=== PATIENT | female | born 1975 | race Caucasian/White ===

== ENCOUNTER 2016-04-11 16:37 | Emergency (ER) | payer OTHER ==
[~2016-04-11] VITALS: Ht 157.5 cm; Wt 58.3 kg
[~2016-04-11 16:37] MED LIST: IBUP800T25 PO
[2016-04-11 16:40] VITALS: Ht 157.5 cm; Wt 58.3 kg
[2016-04-11] MEDS ORDERED: IBUP-1542 PO (17:36)
--- NOTE | 2016-04-11 19:05 | ERD ---
ER Documentation Chief Complaint Date/Time DATE: 04/11/16 TIME: 19:03 Chief Complaint BACK PAIN X 3 DAYS HPI Patient is a 40-year-old female with no medical problems who presents with upper back pain. She has right upper back pain which started today. It is sharp in nature. It is worse with movement and it is burning. She has had no treatment as of yet. She has no fevers. She has no cough. ROS All systems reviewed and are negative except as per history of present illness. Medications Home Meds Active Scripts Ibuprofen* (Motrin*) 600 Mg Tab, 600 MG PO Q6H Y for PAIN AND OR ELEVATED TEMP, #30 TAB Prov:GLENN SPEARS MD 04/11/16 Ibuprofen* (Motrin*) 800 Mg Tab, 800 MG PO Q8 Y for PAIN AND OR ELEVATED TEMP, # 30 TAB Prov:LIONEL RODNEY. SIGNAL CONSTRUCTOR 12/14/15 Allergies Allergies: Coded Allergies: No Known Allergy (Unverified , 07/10/14) PMhx/Soc Medical and Surgical Hx: pt denies Medical Hx, pt denies Surgical Hx History of Surgery: No Anesthesia Reaction: No Hx Neurological Disorder: No Hx Respiratory Disorders: No Hx Cardiac Disorders: No Hx Psychiatric Problems: No Hx Miscellaneous Medical Probl: No Hx Alcohol Use: No Hx Substance Use: No Hx Tobacco Use: No FmHx Family History: diabetes Physical Exam Vitals Vital Signs Date Time Temp Pulse Resp B/P Pulse Ox O2 Delivery O2 Flow Rate FiO2 04/11/16 16:40 98.1 65 18 125/61 99 Physical Exam Const: No acute distress Head: Atraumatic Eyes: Normal Conjunctiva ENT: Normal External Ears, Nose and Mouth. Neck: Full range of motion..~ No meningismus. Resp: Clear to auscultation bilaterally Cardio: Regular rate and rhythm, no murmurs Abd: Soft, non tender, non distended. Normal bowel sounds Skin: No petechiae or rashes Back: No midline or flank tenderness Ext: Muscular skeletal pain to the muscles of the right upper back consistent with muscular skeletal pain Neur: Awake and alert Psych: Normal Mood and Affect Procedures/MDM Patient is a 40-year-old female presents with right upper back pain. This seems to be very musculoskeletal and at this point I doubt infection or neurovascular issue. I doubt pulmonary embolism and her PERC score is negative. The patient will be discharged home and can follow-up with her primary doctor within 24-48 hours. She will be given ibuprofen for pain and can return for any worsening symptoms. I do not believe she requires further workup or admission to the hospital at this time. Departure Diagnosis: Primary Impression: Back pain Back pain location: thoracic back pain Chronicity: acute Back pain laterality: right Qualified Code: M54.6 - Acute right-sided thoracic back pain Condition: Fair Patient Instructions: Back Pain (Acute Or Chronic) Referrals[facility] Usted se chan hecho un examen mdico de control que le indica que no est en emmy condicin que requiera tratamiento urgente en el Departamento de Emergencia. Un estudio ms profundo y el tratamiento de frias condicin pueden esperar sin ningn riesgo hasta que usted sea atendida/o en el consultorio de frias mdico o emmy cl daly. Es responsabilidad suya arreglar emmy mike para el seguimiento del maryanne. MANEJO DE CONDICIONES NO URGENTES EN EL FUTURO 1) Si usted tiene un mdico de atencin primaria: Usted debera llamar a frias mdico de atencin primaria antes de venir al departamento de emergencia. Despus de las horas de consultorio, frias doctor o frias asociado/a est disponible por telfono. El mdico o enfermero de fani en el servicio telefnico puede asesorarle por marie medio para atender el problema, o maryanne contrario se puede programar emmy mike. 2) Si usted no tiene un mdico de atencin primaria: Llame al mdico o clnica de referencia que aparece abajo miguel las horas de consultorio para hacer emmy mike para que le vean. CLINICAS: [facility] [phone] [address] [facility] 786 [phone] [address] [facility] [phone] [facility] [phone] [facility] [phone] [address] [facility]. [phone] [address] Additional Instructions: Llame al doctor MAANA y yas emmy MIKE PARA DENTRO DE 1-2 LOMBARDI.Dgale a la secretaria que nosotros le instruimos hacer esta mike.Avise o llame si frias condicin se empeora antes de la mike. Regresa aqui si peor o no mejor. GLENN SPEARS MD Apr 11, 2016 19:05
== END 2016-04-11 17:55 | disposition home or self-care (01) ==
LOC: FTE 16:37
DX: M54.6 Pain in thoracic spine (principal)
CPT/HCPCS: 99283

== ENCOUNTER 2016-04-23 13:08 | Emergency (ER) | payer OTHER ==
[~2016-04-23] VITALS: Ht 154.9 cm; Wt 56.0 kg
[~2016-04-23 13:08] MED LIST changes: +IBUP-1542 PO
[2016-04-23 13:11] VITALS: Ht 154.9 cm; Wt 56.0 kg
[2016-04-23] MEDS ORDERED: CARB15DR48 BOTH EARS (14:07)
[2016-04-23] MEDS ORDERED: CETI10CA PO (14:08)
[2016-04-23] MEDS ORDERED: IBUP-1542 PO (14:12)
--- NOTE | 2016-04-23 14:12 | ERD ---
ER Documentation Chief Complaint Date/Time DATE: 04/23/16 TIME: 14:10 Chief Complaint L ear pain x 1 wk HPI This is a 40-year-old female who presents to the emergency department today complaining of left earache for the past week. States that she can't hear out of that ear and it feels clogged and that it is itching. Denies any fevers or chills, sore throat or congestion.. ROS All systems reviewed and are negative except as per history of present illness. Medications Home Meds Active Scripts Ibuprofen* (Motrin*) 600 Mg Tab, 600 MG PO Q6, #30 TAB Prov:YOU PFEIFFER PA-C 04/23/16 Cetirizine Hcl* (Zyrtec*) 10 Mg Capsule, 10 MG PO DAILY, #10 TAB.CHEW Prov:YOU PFEIFFER PA-C 04/23/16 Carbamide Peroxide* (Debrox*) 6.5% - 15 Ml Drops, 10 DROP BOTH EARS BID, #1 BOTTLE Prov:YOU PFEIFFER PA-C 04/23/16 Ibuprofen* (Motrin*) 600 Mg Tab, 600 MG PO Q6H Y for PAIN AND OR ELEVATED TEMP, #30 TAB Prov:GLENN SPEARS MD 04/11/16 Ibuprofen* (Motrin*) 800 Mg Tab, 800 MG PO Q8 Y for PAIN AND OR ELEVATED TEMP, # 30 TAB Prov:LIONEL RODNEY FILING AND POLISHING SUPERVISOR 12/14/15 Allergies Allergies: Coded Allergies: No Known Allergy (Unverified , 07/10/14) PMhx/Soc History of Surgery: No Anesthesia Reaction: No Hx Neurological Disorder: No Hx Respiratory Disorders: No Hx Cardiac Disorders: No Hx Psychiatric Problems: No Hx Miscellaneous Medical Probl: No Hx Alcohol Use: No Hx Substance Use: No Hx Tobacco Use: No Physical Exam Vitals Vital Signs Date Time Temp Pulse Resp B/P Pulse Ox O2 Delivery O2 Flow Rate FiO2 04/23/16 13:11 97.0 71 18 104/59 100 Physical Exam Const: No acute distress Head: Atraumatic Eyes: Normal Conjunctiva ENT: Bilateral ears with cerumen impaction. Nose no drainage. Throat no erythema no exudate Neck: Full range of motion..~ No meningismus. Resp: Clear to auscultation bilaterally Cardio: Regular rate and rhythm, no murmurs Skin: No petechiae or rashes Neur: Awake and alert Psych: Normal Mood and Affect Procedures/MDM This is a 40-year-old female who presents to the emergency department today complaining of decreased hearing in her left ear as well as some itchiness and pain. On physical exam patient's bilateral ears have some cerumen impaction to them I do not feel that any lavage here in the emergency department at this time. . Symptoms at this time consistent with cerumen impaction. Was able to remove some of the cerumen from the left side of the ear and there is no evidence of TM erythema. Patient is afebrile and otherwise well-appearing and low suspicion for otitis media, otitis externa, mastoiditis as there is no purulent drainage or erythema. Given the patient a prescription for Debrox, Zyrtec and Motrin. Patient was instructed to return for any worsening of symptoms or no improvement symptoms or development of fever or chills. At this time the patient is stable for discharge and outpatient management. Patient should follow up with their PCP in the next 1-2 days. They may return to the emergency department sooner for any persistent or worsening of symptoms. Patient understood and agreed with the plan. Departure Diagnosis: Primary Impression: Left ear pain Condition: Fair Patient Instructions: Cerumen Impaction, Home Care Referrals: [facility] Usted se chan hecho un examen mdico de control que le indica que no est en emmy condicin que requiera tratamiento urgente en el Departamento de Emergencia. Un estudio ms profundo y el tratamiento de frias condicin pueden esperar sin ningn riesgo hasta que usted sea atendida/o en el consultorio de frias mdico o emmy cl daly. Es responsabilidad suya arreglar emmy mike para el seguimiento del maryanne. MANEJO DE CONDICIONES NO URGENTES EN EL FUTURO 1) Si usted tiene un mdico de atencin primaria: Usted debera llamar a frias mdico de atencin primaria antes de venir al departamento de emergencia. Despus de las horas de consultorio, frias doctor o frias asociado/a est disponible por telfono. El mdico o enfermero de fani en el servicio telefnico puede asesorarle por marie medio para atender el problema, o maryanne contrario se puede programar emmy mike. 2) Si usted no tiene un mdico de atencin primaria: Llame al mdico o clnica de referencia que aparece abajo miguel las horas de consultorio para hacer emmy mike para que le vean. CLINICAS: [facility] [phone] [address] [facility] [phone] [facility] [phone] [address] [place] [address] [phone] [facility]. [place] [address] [phone] [facility] [phone] [address] Additional Instructions: Llame al doctor MAANA y yas emmy MIKE PARA DENTRO DE 1-2 LOMBARDI.Dgale a la secretaria que nosotros le instruimos hacer esta mike.Avise o llame si frias condicin se empeora antes de la mike. Regresa aqui si peor o no mejor. Use drops as prescribed for earwax [facility] YOU PFEIFFER PA-C Apr 23, 2016 14:12
== END 2016-04-23 14:09 | disposition home or self-care (01) ==
LOC: E/R 13:08
DX: H92.02 Otalgia, left ear (principal)
CPT/HCPCS: 99283

== ENCOUNTER 2016-04-25 13:22 | Emergency (ER) | payer OTHER ==
[~2016-04-25] VITALS: Wt 55.5 kg
[~2016-04-25 13:22] MED LIST changes: +CARB15DR48 BOTH EARS; +CETI10CA PO
[2016-04-25] MEDS ORDERED: NAPR-688 PO (14:32)
--- NOTE | 2016-04-25 14:41 | ERD ---
ER Documentation Chief Complaint Date/Time DATE: 04/25/16 TIME: 14:39 Chief Complaint BILATERAL EAR PAIN X 5 DAYS HPI 40-year-old female presents with bilateral ear pain for 5 days is started with the left ear. She also has decreased hearing. She denies fever chills. She feels like there is something in the ear canals. She uses Q-tips to try to get it out. He has had no discharge. ROS All systems reviewed and are negative except as per history of present illness. Medications Home Meds Active Scripts Naproxen* (Naproxen*) 500 Mg Tablet, 500 MG PO BID Y for PAIN, #14 TAB Prov:VERO HANDY 04/25/16 Ibuprofen* (Motrin*) 600 Mg Tab, 600 MG PO Q6, #30 TAB Prov:YOU PFEIFFER PA-C 04/23/16 Cetirizine Hcl* (Zyrtec*) 10 Mg Capsule, 10 MG PO DAILY, #10 TAB.CHEW Prov:YOU PFEIFFER PA-C 04/23/16 Carbamide Peroxide* (Debrox*) 6.5% - 15 Ml Drops, 10 DROP BOTH EARS BID, #1 BOTTLE Prov:YOU PFEIFFER PA-C 04/23/16 Ibuprofen* (Motrin*) 600 Mg Tab, 600 MG PO Q6H Y for PAIN AND OR ELEVATED TEMP, #30 TAB Prov:GLENN SPEARS MD 04/11/16 Ibuprofen* (Motrin*) 800 Mg Tab, 800 MG PO Q8 Y for PAIN AND OR ELEVATED TEMP, # 30 TAB Prov:LIONEL RODNEY NP 12/14/15 Allergies Allergies: Coded Allergies: No Known Allergy (Unverified , 07/10/14) PMhx/Soc History of Surgery: No Anesthesia Reaction: No Hx Neurological Disorder: No Hx Respiratory Disorders: No Hx Cardiac Disorders: No Hx Psychiatric Problems: No Hx Miscellaneous Medical Probl: No Hx Alcohol Use: No Hx Substance Use: No Hx Tobacco Use: No Physical Exam Vitals Vital Signs Date Time Temp Pulse Resp B/P Pulse Ox O2 Delivery O2 Flow Rate FiO2 04/25/16 13:26 97.5 63 16 117/93 99 Physical Exam Const: [] No distress Head: Atraumatic Eyes: Normal Conjunctiva ENT: Normal External Ears, Nose and Mouth. Bilateral external ear canals impacted with cerumen. Neck: Full range of motion..~ No adenopathy. Procedures/MDM Bilateral cerumen impaction. I attempted to remove some of the cerumen with ear curettes which was successful. I do not want to take any deeper there is potentially scratching rupturing the tympanic membrane. We will have removed enough for the patient with the eardrops (she has Debrox eardrops at home) along with water flushing should remove the cerumen. I am giving her primary care follow-up in 2-3 days in case she still has symptoms. I provided her with a 10 cc syringe and told to use gentle pressure to help remove the cerumen with conjunction with Debrox eardrops. Instructed not to push too hard. No signs of infection. Departure Diagnosis: Primary Impression: Bilateral impacted cerumen Condition: Stable Patient Instructions: Cerumen Impaction, Home Care Referrals: COUNTS INCLUDE 234 BEDS AT THE [facility] YOU HAVE RECEIVED A MEDICAL SCREENING EXAM AND THE RESULTS INDICATE THAT YOU DO NOT HAVE A CONDITION THAT REQUIRES URGENT TREATMENT IN THE EMERGENCY DEPARTMENT. FURTHER EVALUATION AND TREATMENT OF YOUR CONDITION CAN WAIT UNTIL YOU ARE SEEN IN YOUR DOCTORS OFFICE WITHIN THE NEXT 1-2 DAYS. IT IS YOUR RESPONSIBILITY TO MAKE AN APPOINTMENT FOR FOLOW-UP CARE. IF YOU HAVE A PRIMARY DOCTOR --you should call your primary doctor and schedule an appointment IF YOU DO NOT HAVE A PRIMARY DOCTOR YOU CAN CALL OUR PHYSICIAN REFERRAL HOTLINE AT IF YOU CAN NOT AFFORD TO SEE A PHYSICIAN YOU CAN CHOSE FROM THE FOLLOWING COUNTS INCLUDE 234 BEDS AT THE [facility] [address] [facility] [address] [facility] [place] [facility]. [facility] [address] [facility] [address] [facility]. [facility]. [address] Additional Instructions: Call your primary care doctor TOMORROW for an appointment during the next 1 WEEK.Tell the paralegal legal secretary that you were referred from this facility.See the doctor sooner or return here if your condition worsens before your appointment time. VERO HANDY DO Apr 25, 2016 14:41
== END 2016-04-25 15:01 | disposition home or self-care (01) ==
LOC: FTE 13:22
DX: H61.23 Impacted cerumen, bilateral (principal)
CPT/HCPCS: 69210; Z7502

== ENCOUNTER 2016-06-16 12:55 | Emergency (ER) | END 2016-06-16 15:43 | disposition home or self-care (01) | DX: K62.5 Hemorrhage of anus and rectum (principal) ==

== ENCOUNTER 2016-06-18 14:15 | Emergency (ER) | payer OTHER ==
[~2016-06-18] VITALS: Ht 154.9 cm; Wt 56.7 kg
[~2016-06-18 14:15] MED LIST changes: +DOCU-144 PO; +NAPR-688 PO
[2016-06-18 14:34] VITALS: Ht 154.9 cm; Wt 56.7 kg
[2016-06-18] MEDS ORDERED: IBUP-1542 PO (14:53)
[2016-06-18] MEDS ORDERED: MED4DP PO (14:53)
--- NOTE | 2016-06-18 16:20 | ERD ---
ER Documentation Chief Complaint Date/Time DATE: 06/18/16 TIME: 16:13 Chief Complaint left limph nose swelling? HPI This is a 40 y/o female that presents to the ER with left sided lymph node swelling and pain. Patient states that pain is severe and constant is throbbing in quality patient states that the pain radiates throughout the left side of her neck. She denies any fevers or chills. She denies any cough or cold symptoms. She denies any sore throat. Patient denies any trauma to the neck. She denies any chest pain or shortness of breath. ROS 12 point review of systems was done, all negative except per HPI. Medications Home Meds Active Scripts Methylprednisolone* (Medrol* DOSE PACK) 4 Mg/Dose-Pack Tab.ds.pk, 4 MG PO . DIRECTED for 6 Days, PACKET Prov:PATRICK FLOR 06/18/16 Ibuprofen* (Motrin*) 600 Mg Tab, 600 MG PO Q6, #30 TAB Prov:PATRICK FLOR 06/18/16 Docusate Sodium* (Colace*) 100 Mg Capsule, 100 MG PO BID, #60 CAP Prov:MIMA MICHELLE MD 06/16/16 Naproxen* (Naproxen*) 500 Mg Tablet, 500 MG PO BID Y for PAIN, #14 TAB Prov:VERO HANDY DO 04/25/16 Ibuprofen* (Motrin*) 600 Mg Tab, 600 MG PO Q6, #30 TAB Prov:YOU PFEIFFER PA-C 04/23/16 Cetirizine Hcl* (Zyrtec*) 10 Mg Capsule, 10 MG PO DAILY, #10 TAB.CHEW Prov:YOU PFEIFFER PA-C 04/23/16 Carbamide Peroxide* (Debrox*) 6.5% - 15 Ml Drops, 10 DROP BOTH EARS BID, #1 BOTTLE Prov:YOU PFEIFFER PA-C 04/23/16 Ibuprofen* (Motrin*) 600 Mg Tab, 600 MG PO Q6H Y for PAIN AND OR ELEVATED TEMP, #30 TAB Prov:GLENN SPEARS MD 04/11/16 Ibuprofen* (Motrin*) 800 Mg Tab, 800 MG PO Q8 Y for PAIN AND OR ELEVATED TEMP, # 30 TAB Prov:LIONEL RODNEY EXTRACTOR OPERATOR HELPER 12/14/15 Allergies Allergies: Coded Allergies: No Known Allergy (Unverified , 07/10/14) PMhx/Soc History of Surgery: No Anesthesia Reaction: No Hx Neurological Disorder: No Hx Respiratory Disorders: No Hx Cardiac Disorders: No Hx Psychiatric Problems: No Hx Miscellaneous Medical Probl: No Hx Alcohol Use: No Hx Substance Use: No Hx Tobacco Use: No Physical Exam Vitals Vital Signs Date Time Temp Pulse Resp B/P Pulse Ox O2 Delivery O2 Flow Rate FiO2 06/18/16 14:34 98.1 78 20 139/78 99 Physical Exam GENERAL: The patient is well developed and appropriate for usual state of health , in no apparent distress. HEENT: Atraumatic. Conjunctivae are pink. Pupils equal, round, and reactive to light. Extraocular muscles are grossly intact. Bilateral tympanic membranes are clear with no evidence of erythema, effusion or dulling of the light reflex. The oropharynx is clear with no erythema or exudates. NECK: Patient has 1 tender and swollen lymph node on the left side of her neck. CHEST: Clear to auscultation bilaterally. There are no rales, wheezes or rhonchi. HEART: Regular rate and rhythm. No murmurs, clicks, rubs or gallops. NEURO: Alert and oriented. SKIN: The skin is warm and dry. Procedures/MDM This is a 40-year-old female that presents to the ER with left-sided neck pain. Patient did have one swollen and tender lymph node. Patient will be sent home with ibuprofen and with a steroid pack. There was no evidence of infection. Abscess is low. Suspicion for trauma is low as there is no history of any falls. I advised patient to follow-up with primary care doctor within 1- 3 days or return to ER sooner if symptoms worsen. I explained to patient that should go away within 1 week if not she urgently needs to follow-up with primary care doctor for further testing. My medical decision making shared with the patient she understands and agrees with plan. Departure Diagnosis: Primary Impression: Lymphadenopathy Condition: Stable Patient Instructions: When Your Child Has Swollen Lymph Nodes Additional Instructions: Call your primary care doctor TOMORROW for an appointment during the next 1-2 days.See the doctor sooner or return here if your condition worsens before your appointment time. IF SWELLING OF LYMPH NODES DOES NOT GO AWAY WITHIN 1-2 WEEKS PLEASE GO TO YOUR PRIMARY CARE DOCTOR'S OFFICE FOR FOLLOW UP! PATRICK FLOR Jun 18, 2016 16:20
== END 2016-06-18 14:56 | disposition home or self-care (01) ==
LOC: E/R 14:15
DX: R59.0 Localized enlarged lymph nodes (principal)
CPT/HCPCS: 99283

== ENCOUNTER 2016-07-05 11:46 | Emergency (ER) | payer OTHER ==
[~2016-07-05] VITALS: Ht 152.4 cm; Wt 55.5 kg
[~2016-07-05 11:46] MED LIST changes: +MED4DP PO
[2016-07-05 12:03] VITALS: Ht 152.4 cm; Wt 55.5 kg
[2016-07-05] MEDS ORDERED: ACETAMINOPHEN 500 MG TAB PO STA (13:22)
--- NOTE | 2016-07-05 14:09 | RADRPT ---
PROCEDURE: Right elbow series CLINICAL INDICATION: Pain status post trauma TECHNIQUE: AP, lateral and oblique views COMPARISON: None available FINDINGS: No evidence for elbow effusion is present. No acute fractures or dislocations are present. No radi odense foreign bodies are present. Normal mineralization and preservation of joint spaces are noted . IMPRESSION: 1. No evidence for acute fractures or dislocations. RPTAT: HDC .Rosalina Harrison MD, MD Date Time Electronically viewed and signed by .Rosalina Harrison MD, on 07/05/2016 14:09 .C/
--- NOTE | 2016-07-05 14:19 | ERD ---
ER Documentation Chief Complaint Date/Time DATE: 07/05/16 TIME: 14:16 Chief Complaint Pt with R arm pain X 3 days, reports bucket fell on it. HPI This a 40-year-old female who presents to the emergency department today complaining of right arm pain after doing community service and filling of a large bucket and then the pocket dropping on her arm. She states that she took ibuprofen. Denies any fevers or chills or previous trauma ROS All systems reviewed and are negative except as per history of present illness. Medications Home Meds Active Scripts Acetaminophen* (Tylophen*) 500 Mg Capsule, 1 CAP PO Q6H Y for PAIN AND OR ELEVATED TEMP, #30 CAP Prov:YOU PFEIFFER PA-C 07/05/16 Ibuprofen* (Motrin*) 600 Mg Tab, 600 MG PO Q6, #30 TAB Prov:YOU PFEIFFER PA-C 07/05/16 Methylprednisolone* (Medrol* DOSE PACK) 4 Mg/Dose-Pack Tab.ds.pk, 4 MG PO . DIRECTED for 6 Days, PACKET Prov:PATRICK FLOR 06/18/16 Ibuprofen* (Motrin*) 600 Mg Tab, 600 MG PO Q6, #30 TAB Prov:PATRICK FLOR 06/18/16 Docusate Sodium* (Colace*) 100 Mg Capsule, 100 MG PO BID, #60 CAP Prov:MMIA MICHELLE MD 06/16/16 Naproxen* (Naproxen*) 500 Mg Tablet, 500 MG PO BID Y for PAIN, #14 TAB Prov:VERO HANDY DO 04/25/16 Ibuprofen* (Motrin*) 600 Mg Tab, 600 MG PO Q6, #30 TAB Prov:YOU PFEIFFER PA-C 04/23/16 Cetirizine Hcl* (Zyrtec*) 10 Mg Capsule, 10 MG PO DAILY, #10 TAB.CHEW Prov:YOU PFEIFFER PA-C 04/23/16 Carbamide Peroxide* (Debrox*) 6.5% - 15 Ml Drops, 10 DROP BOTH EARS BID, #1 BOTTLE Prov:YOU PFEIFFER PA-C 04/23/16 Ibuprofen* (Motrin*) 600 Mg Tab, 600 MG PO Q6H Y for PAIN AND OR ELEVATED TEMP, #30 TAB Prov:GLENN SPEARS MD 04/11/16 Ibuprofen* (Motrin*) 800 Mg Tab, 800 MG PO Q8 Y for PAIN AND OR ELEVATED TEMP, # 30 TAB Prov:LIONEL RODNEY NP 12/14/15 Allergies Allergies: Coded Allergies: No Known Allergy (Unverified , 07/10/14) PMhx/Soc Medical and Surgical Hx: pt denies Medical Hx, pt denies Surgical Hx History of Surgery: No Anesthesia Reaction: No Hx Neurological Disorder: No Hx Respiratory Disorders: No Hx Cardiac Disorders: No Hx Psychiatric Problems: No Hx Miscellaneous Medical Probl: No Hx Alcohol Use: No Hx Substance Use: No Hx Tobacco Use: No Smoking Status: Never smoker Physical Exam Vitals Vital Signs Date Time Temp Pulse Resp B/P Pulse Ox O2 Delivery O2 Flow Rate FiO2 07/05/16 12:03 97.9 62 18 110/54 98 Physical Exam Const: talkative, NAD Head: Atraumatic Eyes: Normal Conjunctiva ENT: Normal External Ears, Nose and Mouth. Neck: Full range of motion..~ No meningismus. Resp: Clear to auscultation bilaterally Cardio: Regular rate and rhythm, no murmurs Skin: No petechiae or rashes MSK right arm with no obvious deformity. No effusion. No ecchymosis. Full active range of motion with tenderness to palpation diffusely over elbow. Pulses 2+. Distal neurovascularly intact. Full active range motion at wrist. Neur: Awake and alert Psych: Normal Mood and Affect Results 24 hrs Current Medications Medications (Trade) Dose Ordered Sig/Jaclyn Route PRN Reason Start Time Stop Time Status Last Admin Dose Admin Acetaminophen (Tylenol Tab) 500 mg ONCE STAT PO 07/05/16 13:22 07/05/16 13:24 DC 07/05/16 13:41 DIAGNOSTIC IMAGING REPORT Patient: RONY CRUMP : 1975 Age: 40 Sex: F MR #: [id number] DOS: 07/05/16 0000 Ordering MD: YOU PFEIFFER PA-C Location: E Room/Bed: PROCEDURE: Right elbow series CLINICAL INDICATION: Pain status post trauma TECHNIQUE: AP, lateral and oblique views COMPARISON: None available FINDINGS: No evidence for elbow effusion is present. No acute fractures or dislocations are present. No radiodense foreign bodies are present. Normal mineralization and preservation of joint spaces are noted. IMPRESSION: 1. No evidence for acute fractures or dislocations. RPTAT: HDC .Rosalina Harrison MD, MD Date Time Electronically viewed and signed by .Rosalina Harrison MD, MD on 07/05/2016 14: 09 .C/ CC: YOU PFEIFFER PA-C Procedures/MDM This a 40-year-old female who presents to the emergency department today complaining of right arm pain after dropping a bucket on her arm that was full and heavy. Patient had pain on physical exam and therefore did obtain imaging. Per the radiology report images of the right elbow are unremarkable. There is no evidence for acute fracture dislocation. There is no erythema or warmth. Low suspicion for septic joint or gout. There are no lacerations. Low suspicion for cellulitis or deep space infection. Patient symptoms at this time is consistent with contusion versus sprain versus strain. Patient was given Tylenol here in the emergency department. Patient is a former drug abuser and I do not feel that she would benefit from narcotics at this time especially given her community service requirements currently. Patient given a prescription for Tylenol and Motrin. She was instructed to ice. At this time the patient is stable for discharge and outpatient management. Patient should follow up with their PCP in the next 1-2 days. They may return to the emergency department sooner for any persistent or worsening of symptoms. Patient understood and agreed with the plan. Departure Diagnosis: Primary Impression: Arm injury Encounter type: initial encounter Laterality: right Qualified Code: S49.91XA - Arm injury, right, initial encounter Condition: Fair YOU PFEIFFER PA-C Jul 05, 2016 14:19
[2016-07-05] MEDS ORDERED: IBUP-1542 PO (14:42)
[2016-07-05] MEDS ORDERED: ACET500C5 PO (14:42)
[2016-07-05 18:39] VITALS: BP 117/68; PULSE 88; RESP 18
== END 2016-07-05 18:40 | disposition home or self-care (01) ==
LOC: FTE 11:46
DX: S49.91XA Unspecified injury of right shoulder and upper arm, initial encounter (principal); W20.8XXA Other cause of strike by thrown, projected or falling object, initial encounter; Y92.9 Unspecified place or not applicable
CPT/HCPCS: 73080; Z7502; Z7610

== ENCOUNTER 2016-08-10 16:16 | Emergency (ER) | payer OTHER ==
[~2016-08-10] VITALS: Ht 152.4 cm; Wt 53.0 kg
[~2016-08-10 16:16] MED LIST changes: +ACET500C5 PO
[2016-08-10 16:22] VITALS: Ht 152.4 cm; Wt 53.0 kg
[2016-08-10] MEDS ORDERED: HYDR25SU23 PR (17:16)
[2016-08-10] MEDS ORDERED: DOCU-144 PO (17:17)
[2016-08-10] MEDS ORDERED: POLY17PO6 PO (17:17)
[2016-08-10] MEDS ORDERED: ACET500C5 PO (17:18)
--- NOTE | 2016-08-10 17:23 | ERD ---
ER Documentation Chief Complaint Date/Time DATE: 08/10/16 TIME: 17:19 Chief Complaint "A FEW DROPS OF BRIGHT RED BLOOD FROM RECTUM EARLIER TODAY"- ABD PAIN HPI This is a 40-year-old female who presents the emergency department today complaining of some rectal pain. Patient states that she had a few drops of blood on the toilet paper. Denies any blood in her stool. Denies any abdominal pain. States her last bowel movement was 3 days ago. States she has had this in the past. Denies any fevers or chills, nausea vomiting or diarrhea ROS All systems reviewed and are negative except as per history of present illness. Medications Home Meds Active Scripts Acetaminophen* (Tylophen*) 500 Mg Capsule, 1 CAP PO Q6H Y for PAIN AND OR ELEVATED TEMP, #30 CAP Prov:OYU PFEIFFERC 08/10/16 Docusate Sodium* (Colace*) 100 Mg Capsule, 100 MG PO TID, #30 CAP Prov:YOU PFEIFFERC 08/10/16 Polyethylene Glycol* (Miralax*) 17 Gm Powd.pack, 17 GM PO DAILY, #20 Prov:YOU PFEIFFER-C 08/10/16 Hydrocortisone Acetate (Anusol-Hc) 25 Mg Supp.rect, 1 SUPP CO BID Y for HEMORROID PAIN/ITCHING, #15 SUPP.RECT Prov:YOU PFEIFFERC 08/10/16 Acetaminophen* (Tylophen*) 500 Mg Capsule, 1 CAP PO Q6H Y for PAIN AND OR ELEVATED TEMP, #30 CAP Prov:YOU PFEIFFERC 07/05/16 Ibuprofen* (Motrin*) 600 Mg Tab, 600 MG PO Q6, #30 TAB Prov:YOU PFEIFFER-C 07/05/16 Methylprednisolone* (Medrol* DOSE PACK) 4 Mg/Dose-Pack Tab.ds.pk, 4 MG PO . DIRECTED for 6 Days, PACKET Prov:PATRICK FLOR 06/18/16 Ibuprofen* (Motrin*) 600 Mg Tab, 600 MG PO Q6, #30 TAB Prov:PATRICK FLOR 06/18/16 Docusate Sodium* (Colace*) 100 Mg Capsule, 100 MG PO BID, #60 CAP Prov:MIMA MICHELLE MD 06/16/16 Naproxen* (Naproxen*) 500 Mg Tablet, 500 MG PO BID Y for PAIN, #14 TAB Prov:VERO HANDY 04/25/16 Ibuprofen* (Motrin*) 600 Mg Tab, 600 MG PO Q6, #30 TAB Prov:YOU PFEIFFER-C 04/23/16 Cetirizine Hcl* (Zyrtec*) 10 Mg Capsule, 10 MG PO DAILY, #10 TAB.CHEW Prov:YOU PFEIFFER-C 04/23/16 Carbamide Peroxide* (Debrox*) 6.5% - 15 Ml Drops, 10 DROP BOTH EARS BID, #1 BOTTLE Prov:YOU PFEIFFER-C 04/23/16 Ibuprofen* (Motrin*) 600 Mg Tab, 600 MG PO Q6H Y for PAIN AND OR ELEVATED TEMP, #30 TAB Prov:GLENN SPEARS MD 04/11/16 Ibuprofen* (Motrin*) 800 Mg Tab, 800 MG PO Q8 Y for PAIN AND OR ELEVATED TEMP, # 30 TAB Prov:LIONEL RODNEY NP 12/14/15 Allergies Allergies: Coded Allergies: No Known Allergy (Unverified , 07/10/14) PMhx/Soc History of Surgery: No Anesthesia Reaction: No Hx Neurological Disorder: No Hx Respiratory Disorders: No Hx Cardiac Disorders: No Hx Psychiatric Problems: No Hx Miscellaneous Medical Probl: No Hx Alcohol Use: No Hx Substance Use: No Hx Tobacco Use: No Physical Exam Vitals Vital Signs Date Time Temp Pulse Resp B/P Pulse Ox O2 Delivery O2 Flow Rate FiO2 08/10/16 16:22 98.6 62 18 158/59 99 Physical Exam Const: No acute distress Head: Atraumatic Eyes: Normal Conjunctiva ENT: Normal External Ears, Nose and Mouth. Neck: Full range of motion..~ No meningismus. Resp: Clear to auscultation bilaterally Cardio: Regular rate and rhythm, no murmurs Abd: Soft, non tender, non distended. Normal bowel sounds rectal exam shows no significant external hemorrhoids, erythema or fluctuance. There is no active bleeding, gross blood, melanotic stools or masses. Skin: No petechiae or rashes Neur: Awake and alert Psych: Normal Mood and Affect Procedures/MDM This a 40-year-old female who presents to the emergency department today complaining of some rectal pain and some blood on her toilet paper when she wipes. Patient was seen here on June 16, 2016 with similar symptoms. She has a stable rectal bleeding with no evidence of active bleeding, melanotic stools or abscesses or signs or symptoms of anemia. Patient's rectal bleeding likely from constipation or internal hemorrhoids. Patient denies any abdominal pain on physical exam and I have low suspicion for acute surgical abdomen, significant GI bleed. Patient was given a prescription for Tylenol, Anusol suppositories, Colace and MiraLAX. Patient did not follow-up with her primary care physician upon her last visit and she was instructed to do so for referral to GI specialist. Patient understood At this time the patient is stable for discharge and outpatient management. Patient should follow up with their PCP in the next 1-2 days. They may return to the emergency department sooner for any persistent or worsening of symptoms. Patient understood and agreed with the plan. Departure Diagnosis: Primary Impression: Rectal bleeding Condition: Fair Patient Instructions: Constipation (Adult), Rectal Bleed, Stable Referrals: your PCP Additional Instructions: Llame al doctor MAANA y yas emmy MIKE PARA DENTRO DE 1-2 LOMBARDI.Dgale a la secretaria que nosotros le instruimos hacer esta mike.Avise o llame si frias condicin se empeora antes de la mike. Regresa aqui si peor o no mejor. Take Tylenol for pain Use Anusol for rectal pain Take Colace and MiraLAX for constipation YOU PFEIFFER PA-C August 10, 2016 17:23
== END 2016-08-10 17:33 | disposition home or self-care (01) ==
LOC: FTE 16:16
DX: K62.5 Hemorrhage of anus and rectum (principal)
CPT/HCPCS: 99284

== ENCOUNTER 2016-08-23 16:27 | Emergency (ER) | payer OTHER ==
[~2016-08-23] VITALS: Wt 50.0 kg
[~2016-08-23 16:27] MED LIST changes: +HYDR25SU23 PR; +POLY17PO6 PO
--- NOTE | 2016-08-23 17:46 | RADRPT ---
PROCEDURE: XR Hand. CLINICAL INDICATION: Right hand pain. Injury TECHNIQUE: Three views of the right hand were obtained. COMPARISON: No prior studies are available for comparison. FINDINGS: There is no evidence of acute fracture or dislocation. The joint spaces are maintained. Bony mineralization is normal. Soft tissues are unremarkable. No radiopaque foreign body identified. IMPRESSION: 1. Unremarkable right hand x-ray series. 2. No acute fracture or dislocation is seen. RPTAT: QQ .Chemo Samuels MD, Date Time Electronically viewed and signed by .Chemo Samuels MD, on 08/23/2016 17:46 .M/
[2016-08-23] MEDS ORDERED: ACET500C5 PO (17:59)
[2016-08-23 18:06] VITALS: BP 121/62; PULSE 72; RESP 18
--- NOTE | 2016-08-23 18:13 | ERD ---
ER Documentation Chief Complaint Date/Time DATE: 08/23/16 TIME: 18:06 Chief Complaint R HAND PAIN AND SWELLING FROM CAR DOOR . 3 DAYS AGO . HPI 40-year-old right-handed female with no significant past medical history presents the ED complaining of a right hand injury about 3 days ago. Reports that she sustained a crush injury to her right hand. States that her right middle knuckle is in pain. Describes the pain as a pulsating and throbbing sensation. Rates it a 8 out of 10. States that she has been taking ibuprofen without relief of the pain. Denies any loss of sensation, loss of range of motion, fever, weakness, numbness or tingling, nausea, vomiting. ROS All systems reviewed and are negative except as per history of present illness. Medications Home Meds Active Scripts Acetaminophen* (Tylophen*) 500 Mg Capsule, 1 CAP PO Q6H Y for PAIN AND OR ELEVATED TEMP, #20 CAP Prov:MARGARITA RAMÍREZ PA-C 08/23/16 Acetaminophen* (Tylophen*) 500 Mg Capsule, 1 CAP PO Q6H Y for PAIN AND OR ELEVATED TEMP, #30 CAP Prov:YOU PFEIFFER PA-C 08/10/16 Docusate Sodium* (Colace*) 100 Mg Capsule, 100 MG PO TID, #30 CAP Prov:YOU PFEIFFER PA-C 08/10/16 Polyethylene Glycol* (Miralax*) 17 Gm Powd.pack, 17 GM PO DAILY, #20 Prov:YOU PFEIFFER PA-C 08/10/16 Hydrocortisone Acetate (Anusol-Hc) 25 Mg Supp.rect, 1 SUPP [place] BID Y for HEMORROID PAIN/ITCHING, #15 SUPP.RECT Prov:YOU PFEIFFER PA-C 08/10/16 Acetaminophen* (Tylophen*) 500 Mg Capsule, 1 CAP PO Q6H Y for PAIN AND OR ELEVATED TEMP, #30 CAP Prov:YOU PFEIFFERC 07/05/16 Ibuprofen* (Motrin*) 600 Mg Tab, 600 MG PO Q6, #30 TAB Prov:YOU PFEIFFER PA-C 07/05/16 Methylprednisolone* (Medrol* DOSE PACK) 4 Mg/Dose-Pack Tab.ds.pk, 4 MG PO . DIRECTED for 6 Days, PACKET Prov:PATRICK FLOR 06/18/16 Ibuprofen* (Motrin*) 600 Mg Tab, 600 MG PO Q6, #30 TAB Prov:PATRICK FLOR 06/18/16 Docusate Sodium* (Colace*) 100 Mg Capsule, 100 MG PO BID, #60 CAP Prov:MIMA MICHELLE MD 06/16/16 Naproxen* (Naproxen*) 500 Mg Tablet, 500 MG PO BID Y for PAIN, #14 TAB Prov:VERO HANDY 04/25/16 Ibuprofen* (Motrin*) 600 Mg Tab, 600 MG PO Q6, #30 TAB Prov:YOU PFEIFFER-C 04/23/16 Cetirizine Hcl* (Zyrtec*) 10 Mg Capsule, 10 MG PO DAILY, #10 TAB.CHEW Prov:YOU PFEIFFER-C 04/23/16 Carbamide Peroxide* (Debrox*) 6.5% - 15 Ml Drops, 10 DROP BOTH EARS BID, #1 BOTTLE Prov:YOU PFEIFFER-C 04/23/16 Ibuprofen* (Motrin*) 600 Mg Tab, 600 MG PO Q6H Y for PAIN AND OR ELEVATED TEMP, #30 TAB Prov:GLENN SPEARS MD 04/11/16 Ibuprofen* (Motrin*) 800 Mg Tab, 800 MG PO Q8 Y for PAIN AND OR ELEVATED TEMP, # 30 TAB Prov:LIONEL RODNEY NP 12/14/15 Allergies Allergies: Coded Allergies: No Known Allergy (Unverified , 07/10/14) PMhx/Soc Medical and Surgical Hx: pt denies Medical Hx, pt denies Surgical Hx History of Surgery: No Anesthesia Reaction: No Hx Neurological Disorder: No Hx Respiratory Disorders: No Hx Cardiac Disorders: No Hx Psychiatric Problems: No Hx Miscellaneous Medical Probl: No Hx Alcohol Use: No Hx Substance Use: No Hx Tobacco Use: No Smoking Status: Never smoker Physical Exam Vitals Vital Signs Date Time Temp Pulse Resp B/P Pulse Ox O2 Delivery O2 Flow Rate FiO2 08/23/16 16:32 98.5 63 20 98/54 99 Physical Exam Const: [id number], well-nourished. In no acute distress. Head: Atraumatic, normocephalic Eyes: Normal Conjunctiva without injection ENT: Normal external ear, nose and mouth. Neck: Full range of motion. No meningismus. Resp: Clear to auscultation bilaterally. No wheezing, rhonchi, rales, or crackles. No accessory muscle use. No retractions. Cardio: Regular rate and rhythm, no murmurs Skin: No petechiae or rashes Ext: No cyanosis, or edema. Cap refill less than 2 seconds. Distal pulses intact bilaterally. Right MTP tenderness to palpation. Slightly edematous. No surrounding erythema. No warmth to touch. Full range of motion of the PIP, DIP, MCP joints. Patient was able to make a fist. Extension and flexion was noted. No tenderness palpation of the distal radius or ulna. Patient had full range of motion of flexion and extension of wrists and other joints of bilateral upper and lower extremities. . Neur: Awake and alert. Normal gait and coordination. Muscle strength 5/5. Sensation intact bilaterally. Psych: Normal Mood and Affect Procedures/MDM This is a 40-year-old female patient with no significant past medical history presents the ED complaining of right hand pain after a crush injury from a car door. Patient is afebrile nontoxic appearing. Patient has normal vital signs. A right hand x-ray was ordered to further evaluate patient. PROCEDURE: XR Hand. CLINICAL INDICATION: Right hand pain. Injury TECHNIQUE: Three views of the right hand were obtained. COMPARISON: No prior studies are available for comparison. FINDINGS: There is no evidence of acute fracture or dislocation. The joint spaces are maintained. Bony mineralization is normal. Soft tissues are unremarkable. No radiopaque foreign body identified. IMPRESSION: 1. Unremarkable right hand x-ray series. 2. No acute fracture or dislocation is seen. Patient is neurovascularly intact. Patient's extremity symptoms have stabilized while they have been evaluated in the department and are appropriate for outpatient follow up. No evidence of fractures, dislocations, compartment syndrome, neurologic injury, vascular injury, open joint, open fracture, tendon laceration, septic arthritis, osteomyelitis, DVT, foreign body, or other emergent conditions. Discharge medications: Tylenol Follow up with primary care physician in 1-2 days. Instructed patient to return to the ED sooner for any worsening symptoms. Patient's questions were answered. Patient understood and agreed with discharge plan. Patient discharged stable. Departure Diagnosis: Primary Impression: Injury of hand Encounter type: initial encounter Laterality: right Qualified Code: S69.91XA - Injury of hand, right, initial encounter Condition: Stable Patient Instructions: Crush Injury, Hand/Finger Referrals: [facility] YOU HAVE RECEIVED A MEDICAL SCREENING EXAM AND THE RESULTS INDICATE THAT YOU DO NOT HAVE A CONDITION THAT REQUIRES URGENT TREATMENT IN THE EMERGENCY DEPARTMENT. FURTHER EVALUATION AND TREATMENT OF YOUR CONDITION CAN WAIT UNTIL YOU ARE SEEN IN YOUR DOCTORS OFFICE WITHIN THE NEXT 1-2 DAYS. IT IS YOUR RESPONSIBILITY TO MAKE AN APPOINTMENT FOR FOLOW-UP CARE. IF YOU HAVE A PRIMARY DOCTOR --you should call your primary doctor and schedule an appointment IF YOU DO NOT HAVE A PRIMARY DOCTOR YOU CAN CALL OUR PHYSICIAN REFERRAL HOTLINE AT IF YOU CAN NOT AFFORD TO SEE A PHYSICIAN YOU CAN CHOSE FROM THE FOLLOWING [facility] [address] [facility]. [facility] [address] [email or web address] [address] [facility] [address] [facility] [address] [facility] [address] [facility] [facility] YOU HAVE RECEIVED A MEDICAL SCREENING EXAM AND THE RESULTS INDICATE THAT YOU DO NOT HAVE A CONDITION THAT REQUIRES URGENT TREATMENT IN THE EMERGENCY DEPARTMENT. FURTHER EVALUATION AND TREATMENT OF YOUR CONDITION CAN WAIT UNTIL YOU ARE SEEN IN YOUR DOCTORS OFFICE WITHIN THE NEXT 1-2 DAYS. IT IS YOUR RESPONSIBILITY TO MAKE AN APPOINTMENT FOR FOLOW-UP CARE. IF YOU HAVE A PRIMARY DOCTOR --you should call your primary doctor and schedule and appointment IF YOU DO NOT HAVE A PRIMARY DOCTOR YOU CAN CALL OUR PHYSICIAN REFERRAL HOTLINE AT . IF YOU CAN NOT AFFORD TO SEE A PHYSICIAN YOU CAN CHOSE FROM THE FOLLOWING [facility] INSTITUTIONS: [facility] [address] [place] [address] [facility] [address] [place] [address] [place] [address] [place] [address] [facility] Additional Instructions: Call your primary care doctor TOMORROW for an appointment during the next 2-3 days.See the doctor sooner or return here if your condition worsens before your appointment time. MARGARITA RAMÍREZ PA-C August 23, 2016 18:13 MARGARITA RAMÍREZ PA-C August 23, 2016 18:13
== END 2016-08-23 18:05 | disposition home or self-care (01) ==
LOC: FTE 16:27
DX: S69.91XA Unspecified injury of right wrist, hand and finger(s), initial encounter (principal); W22.8XXA Striking against or struck by other objects, initial encounter; Y92.9 Unspecified place or not applicable
CPT/HCPCS: 73130; Z7502

== ENCOUNTER 2016-09-02 12:03 | Emergency (ER) | payer OTHER ==
[~2016-09-02] VITALS: Ht 157.5 cm; Wt 52.0 kg
[2016-09-02 12:09] VITALS: Ht 157.5 cm; Wt 52.0 kg
[2016-09-02] MEDS ORDERED: IBUPROFEN 200 MG TAB PO STA (12:49)
--- NOTE | 2016-09-02 12:55 | ERD ---
ER Documentation Chief Complaint Date/Time DATE: 09/02/16 TIME: 12:51 Chief Complaint chest pain since am, "i have a lot of stress" HPI 40-year-old female with a history of high cholesterol presents to the emergency department complaining of throbbing, nonradiating left-sided chest pain since 630 this morning. Patient states the pain is 10 out of 10. She states that this has happened many times before. She admits to having a lot of stress and anxiety lately. She denies any shortness of breath, palpitations, drug use, fevers, abdominal pain. Patient denies taking any medications for this. Denies any recent traveling, estrogen use. ROS All systems reviewed and are negative except as per history of present illness. Medications Home Meds Active Scripts Ibuprofen* (Motrin*) 400 Mg Tab, 400 MG PO Q6H Y for PAIN AND OR ELEVATED TEMP, #30 TAB Prov:DEYSI HESS PA-C 09/02/16 Acetaminophen* (Tylophen*) 500 Mg Capsule, 1 CAP PO Q6H Y for PAIN AND OR ELEVATED TEMP, #20 CAP Prov:MARGARITA RAMÍREZ PA-C 08/23/16 Acetaminophen* (Tylophen*) 500 Mg Capsule, 1 CAP PO Q6H Y for PAIN AND OR ELEVATED TEMP, #30 CAP Prov:YOU PFEIFFER PA-C 08/10/16 Docusate Sodium* (Colace*) 100 Mg Capsule, 100 MG PO TID, #30 CAP Prov:YOU PFEIFFER PA-C 08/10/16 Polyethylene Glycol* (Miralax*) 17 Gm Powd.pack, 17 GM PO DAILY, #20 Prov:YOU PFEIFFERC 08/10/16 Hydrocortisone Acetate (Anusol-Hc) 25 Mg Supp.rect, 1 SUPP [place] BID Y for HEMORROID PAIN/ITCHING, #15 SUPP.RECT Prov:YOU PFEIFFER PA-C 08/10/16 Acetaminophen* (Tylophen*) 500 Mg Capsule, 1 CAP PO Q6H Y for PAIN AND OR ELEVATED TEMP, #30 CAP Prov:YOU PFEIFFER PA-C 07/05/16 Ibuprofen* (Motrin*) 600 Mg Tab, 600 MG PO Q6, #30 TAB Prov:YOU PFEIFFERC 07/05/16 Methylprednisolone* (Medrol* DOSE PACK) 4 Mg/Dose-Pack Tab.ds.pk, 4 MG PO . DIRECTED for 6 Days, PACKET Prov:PATRICK FLOR Miguel Angel 06/18/16 Ibuprofen* (Motrin*) 600 Mg Tab, 600 MG PO Q6, #30 TAB Prov:PATRICK FLOR Miguel Angel 06/18/16 Docusate Sodium* (Colace*) 100 Mg Capsule, 100 MG PO BID, #60 CAP Prov:MIMA CORNELL MD 06/16/16 Naproxen* (Naproxen*) 500 Mg Tablet, 500 MG PO BID Y for PAIN, #14 TAB Prov:VERO HANDY DO 04/25/16 Ibuprofen* (Motrin*) 600 Mg Tab, 600 MG PO Q6, #30 TAB Prov:YOU PFEIFFERC 04/23/16 Cetirizine Hcl* (Zyrtec*) 10 Mg Capsule, 10 MG PO DAILY, #10 TAB.CHEW Prov:YOU PFEIFFER PA-C 04/23/16 Carbamide Peroxide* (Debrox*) 6.5% - 15 Ml Drops, 10 DROP BOTH EARS BID, #1 BOTTLE Prov:YOU PFEIFFER PA-C 04/23/16 Ibuprofen* (Motrin*) 600 Mg Tab, 600 MG PO Q6H Y for PAIN AND OR ELEVATED TEMP, #30 TAB Prov:GLENN SPEARS MD 04/11/16 Ibuprofen* (Motrin*) 800 Mg Tab, 800 MG PO Q8 Y for PAIN AND OR ELEVATED TEMP, # 30 TAB Prov:LIONEL RODNEY NP 12/14/15 Allergies Allergies: Coded Allergies: No Known Allergy (Unverified , 07/10/14) PMhx/Soc Medical and Surgical Hx: pt denies Medical Hx, pt denies Surgical Hx History of Surgery: No Anesthesia Reaction: No Hx Neurological Disorder: No Hx Respiratory Disorders: No Hx Cardiac Disorders: No Hx Psychiatric Problems: No Hx Miscellaneous Medical Probl: No Hx Alcohol Use: No Hx Substance Use: No Hx Tobacco Use: No Smoking Status: Never smoker Physical Exam Vitals Physical Exam Const: Well-developed well-nourished no acute distress Head: Atraumatic Eyes: Normal Conjunctiva ENT: Normal External Ears, Nose and Mouth. Neck: Full range of motion..~ No meningismus. Resp: Clear to auscultation bilaterally Cardio: Regular rate and rhythm, no murmurs No JVD, Abd: Soft, non tender, non distended. Normal bowel sounds Skin: No petechiae or rashes Back: No midline or flank tenderness Ext: No cyanosis, or edema Neur: Awake and alert Psych: Normal Mood and Affect Results 24 hrs Laboratory Tests Test 09/02/16 13:00 White Blood Count 7.910^3/ul Red Blood Count 4.3310^6/ul Hemoglobin 12.9g/dl Hematocrit 39.2% Mean Corpuscular Volume 90.5fl Mean Corpuscular Hemoglobin 29.8pg Mean Corpuscular Hemoglobin Concent 32.9g/dl Red Cell Distribution Width 12.4% Platelet Count 57469^3/UL Mean Platelet Volume 8.4fl Neutrophils % 76.9% Lymphocytes % 16.6% Monocytes % 5.4% Eosinophils % 0.5% Basophils % 0.3% Nucleated Red Blood Cells % 0.0/100WBC Neutrophils # 6.110^3/ul Lymphocytes # 1.310^3/ul Monocytes # 0.410^3/ul Eosinophils # 0.010^3/ul Basophils # 0.010^3/ul Nucleated Red Blood Cells # 0.010^3/ul Sodium Level 143mmol/L Potassium Level 4.1mmol/L Chloride Level 106mmol/L Carbon Dioxide Level 27mmol/L Anion Gap 14 Blood Urea Nitrogen 11mg/dl Creatinine 0.55mg/dl Glucose Level 95mg/dl Calcium Level 9.5mg/dl Total Bilirubin 0.2mg/dl Direct Bilirubin 0.00mg/dl Indirect Bilirubin 0.2mg/dl Aspartate Amino Transf (AST/SGOT) 18IU/L Alanine Aminotransferase (ALT/SGPT) 23IU/L Alkaline Phosphatase 73IU/L Troponin I < 0.012ng/ml Total Protein 7.3g/dl Albumin 4.7g/dl Globulin 2.60g/dl Albumin/Globulin Ratio 1.80 Current Medications Medications (Trade) Dose Ordered Sig/Jaclyn Route PRN Reason Start Time Stop Time Status Last Admin Dose Admin Ibuprofen (Motrin) 400 mg ONCE STAT PO 09/02/16 12:49 09/02/16 12:51 DC 09/02/16 12:57 Lorazepam (Ativan) 1 mg ONCE ONCE PO 09/02/16 13:00 09/02/16 13:01 DC 09/02/16 12:57 Procedures/MDM This is a 40-year-old female presenting to the emergency department complaining of a throbbing sharp nonradiating left-sided chest pain since this 6:30 this morning. Patient states that this has happened many times before. Patient appears well, she has stable vital signs. I will low suspicion for ACS, pulmonary embolism, pneumothorax, pleural effusion or unstable angina. In the ED patient was given Ativan and ibuprofen, I have reassessed her and she is doing a lot better, patient likely has anxiety. EKG was done and did not show any evidence of STEMI or dysrhythmia. Lab work was done. Lab work was drawn. CBC did not show any evidence of leukocytosis or anemia. CMP did not show any evidence of renal, liver, or electrolyte abnormalities. Troponin was negative. UA did not show any evidence of hemoglobin or urinary tract infection. Chest x- ray did not show any evidence of infiltrates, pneumothorax or pleural effusion. Patient has a low heart score. 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 She stable for discharge for home with precautions to return to the ER for any worsening signs or symptoms. She understands and agrees with this plan EKG: read and signed off by myself and Dr. Cornell Rate/Rhythm: Normal Sinus Rhythm at 66 bpm QRS, ST, T-waves: No changes consistent w/ acute ischemia Impression: No evidence of ischemia or arrhythmia Chest X-ray 1V Interpreted by me: Soft Tissue: No acute abnormalities Bones: No acute abnormalities Mediastinum/Cardiac Silhouette/Lungs: No acute abnormalities Departure Diagnosis: Primary Impression: Chest pain Condition: Stable DEYSI HESS PA-C Sep 02, 2016 12:55
[2016-09-02] MEDS ORDERED: LORAZEPAM 1 MG TAB PO ONE (13:00)
[2016-09-02 13:16] LABS: ADD SCAN DIFF NO
[2016-09-02 13:19] LABS: BASOPHILS % 0.3 % (0.0-2.0); EOSINOPHILS % 0.5 % (0.0-7.0); HEMATOCRIT 39.2 % (37.0-47.0); HEMOGLOBIN 12.9 g/dl (12.0-16.0); LYMPHOCYTES # 1.3 10^3/ul (0.8-2.9); LYMPHOCYTES % 16.6 % (15.0-51.0); MEAN CORPUSCULAR HEMOGLOBIN 29.8 pg (29.0-33.0); MEAN CORPUSCULAR HGB CONC 32.9 g/dl (32.0-37.0); MEAN CORPUSCULAR VOLUME 90.5 fl (82.0-101.0); MEAN PLATELET VOLUME 8.4 fl (7.4-10.4); MONOCYTE # 0.4 10^3/ul (0.3-0.9); MONOCYTES % 5.4 % (0.0-11.0); NEUTROPHIL # 6.1 10^3/ul (1.6-7.5); NEUTROPHILS % 76.9 % (39.0-77.0); PLATELET COUNT 217 10^3/UL (140-415); RED BLOOD COUNT 4.33 10^6/ul (4.20-5.40); RED CELL DISTRIBUTION WIDTH 12.4 % (11.5-14.5); WHITE BLOOD COUNT 7.9 10^3/ul (4.8-10.8)
--- NOTE | 2016-09-02 13:27 | RADRPT ---
PROCEDURE: XR Chest. CLINICAL INDICATION: chest pain TECHNIQUE: Single frontal view of the chest was obtained COMPARISON: 07/10/2014 FINDINGS: The heart and mediastinum are within normal limits. The lungs are clear. There is no pleural effusion or pneumothorax. RPTAT: AA IMPRESSION: No acute disease. .Cristian Lantigua MD, MD Date Time Electronically viewed and signed by .Cristian Lantigua MD, MD on 09/02/2016 13:26 .S/
[2016-09-02] MEDS ORDERED: IBUP400T22 PO (13:37)
[2016-09-02 13:43] LABS: ALANINE AMINOTRANSFERASE 23 IU/L (13-69); ALBUMIN 4.7 g/dl (3.3-4.9); ALKALINE PHOSPHATASE 73 IU/L (42-121); ANION GAP 14 (8-16); ASPARTATE AMINO TRANSFERASE 18 IU/L (15-46); BILIRUBIN,INDIRECT 0.2 mg/dl (0-1.1); BILIRUBIN,TOTAL 0.2 mg/dl (0.2-1.3); BLOOD UREA NITROGEN 11 mg/dl (7-20); CALCIUM 9.5 mg/dl (8.4-10.2); CARBON DIOXIDE 27 mmol/L (21-31); CHLORIDE 106 mmol/L (97-110); CREATININE 0.55 mg/dl (0.44-1.00); GLUCOSE 95 mg/dl (70-220); POTASSIUM 4.1 mmol/L (3.5-5.1); SODIUM 143 mmol/L (135-144); TOTAL PROTEIN 7.3 g/dl (6.1-8.1)
[2016-09-02 13:54] LABS: TROPONIN-I < 0.012 ng/ml (0.00-0.12)
[2016-09-02 14:22] VITALS: BP 120/62; PULSE 77; RESP 15
== END 2016-09-02 14:23 | disposition home or self-care (01) ==
LOC: FTE 12:03
DX: R07.9 Chest pain, unspecified (principal)
CPT/HCPCS: 71010; 80053; 84484; 85025; 93005; Z7502; Z7610

== ENCOUNTER 2017-01-06 17:22 | Emergency (ER) | payer OTHER ==
[~2017-01-06] VITALS: Ht 160 cm; Wt 67.0 kg
[~2017-01-06 17:22] MED LIST changes: -ACET500C5 PO; +BUPR300T36 PO; -CARB15DR48 BOTH EARS; -CETI10CA PO; -DOCU-144 PO; +FAMO-96 PO; -HYDR25SU23 PR; -IBUP-1542 PO; -IBUP800T25 PO; -MED4DP PO; -NAPR-688 PO; -POLY17PO6 PO
[2017-01-06 17:24] VITALS: Ht 160 cm; Wt 67.0 kg
--- NOTE | 2017-01-06 19:17 | RADRPT ---
PROCEDURE: US Pelvis. CLINICAL INDICATION: Abnormal vaginal bleeding. TECHNIQUE: The pelvis was evaluated with transabdominal and transvaginal sonography in the axial a nd sagittal planes. COMPARISON: No prior study is available for comparison. FINDINGS: Uterus: 7.9 x 4.5 x 6.1 cm. Endometrium: 4.5 mm. Right ovary: 2.9 x 2.3 x 2.3 cm. Left ovary: 2.5 x 1.0 x 1.6 cm. Uterine masses: None. Ovarian masses: None. Color Doppler and pulsed Doppler sonography demonstrate normal flow to the ova leodan. Other pelvic masses: None. Free fluid: None. IMPRESSION: 1. Normal pelvic ultrasound. RPTAT: QQ .Arturo Spears MD, MD Date Time Electronically viewed and signed by .Arturo Spears MD, on 01/06/2017 19:17 .R/
[2017-01-06 19:25] LABS: ADD UMIC YES; UR ASCORBIC ACID 20 mg/dL (NEGATIVE); UR BILIRUBIN (Dip) NEGATIVE (NEGATIVE); UR BLOOD (Dip) 3+ mg/dL (NEGATIVE); UR CLARITY SLIGHTLY CLOUDY (CLEAR); UR COLOR YELLOW (YELLOW); UR GLUCOSE (Dip) NEGATIVE (NEGATIVE); UR KETONES (Dip) NEGATIVE (NEGATIVE); UR LEUKOCYTE ESTERASE (Dip) 1+ Leu/ul (NEGATIVE); UR MUCUS FEW /HPF (NONE SEEN); UR NITRITE (Dip) NEGATIVE (NEGATIVE); UR RBC > 182 /HPF (0-5); UR SPECIFIC GRAVITY (Dip) 1.015 (1.003-1.030); UR SQUAMOUS EPITHELIAL CELL FEW /HPF (FEW); UR TOTAL PROTEIN (Dip) NEGATIVE (NEGATIVE); UR UROBILINOGEN (Dip) NEGATIVE (NEGATIVE)
[2017-01-06 19:31] LABS: BASOPHILS % 0.3 % (0.0-2.0); EOSINOPHILS # 0.1 10^3/ul (0.0-0.5); HEMATOCRIT 38.2 % (37.0-47.0); HEMOGLOBIN 12.7 g/dl (12.0-16.0); LYMPHOCYTES # 2.2 10^3/ul (0.8-2.9); LYMPHOCYTES % 22.3 % (15.0-51.0); MEAN CORPUSCULAR HGB CONC 33.2 g/dl (32.0-37.0); MEAN CORPUSCULAR VOLUME 93.2 fl (82.0-101.0); MONOCYTE # 0.6 10^3/ul (0.3-0.9); PLATELET COUNT 245 10^3/UL (140-415); RED CELL DISTRIBUTION WIDTH 12.8 % (11.5-14.5)
[2017-01-06 19:51] LABS: ALBUMIN 4.2 g/dl (3.3-4.9); ALBUMIN/GLOBULIN RATIO 1.27; BILIRUBIN,INDIRECT 0.1 mg/dl (0-1.1); BILIRUBIN,TOTAL 0.1 mg/dl (0.2-1.3); CALCIUM 9.3 mg/dl (8.4-10.2); CREATININE 0.57 mg/dl (0.44-1.00); TOTAL PROTEIN 7.5 g/dl (6.1-8.1)
[2017-01-06] MEDS ORDERED: CEPH-443 PO (20:18)
--- NOTE | 2017-01-06 20:27 | ERD ---
ER Documentation Chief Complaint Date/Time DATE: 01/06/17 TIME: 20:23 Chief Complaint VAGINAL BLEEDING X 1 MOS HPI This is a 41-year-old female that presents to the ER with vaginal bleeding for the last month. Patient states that she uses about a bag of pads a day. She does admit to some pelvic pain. Pelvic pain is crampy in nature, and non radiating. She has not tried anything for the pain. Patient denies any weakness , or dizziness. Patient denies chest pain or shortness of breath. Patient denies to urinary frequency and dysuria. She denies any other vaginal discharge. She denies any fevers or chills. ROS 12 point review of systems was done, all negative except per HPI. Medications Home Meds Active Scripts Cephalexin* (Keflex*) 500 Mg Capsule, 500 MG PO BID for 7 Days, CAP Prov:PATRICK FLOR 01/06/17 Famotidine* (Pepcid*) 20 Mg Tablet, 20 MG PO BID for 28 Days, #56 TAB Prov:BECKY HATHAWAY MD 11/21/16 Reported Medications Bupropion Hcl* (Bupropion XL*) 300 Mg Tab.sr.24h, 300 MG PO DAILY, TAB.SA 11/21/16 Allergies Allergies: Coded Allergies: No Known Allergy (Unverified , 11/21/16) PMhx/Soc Medical and Surgical Hx: pt denies Medical Hx, pt denies Surgical Hx History of Surgery: No Anesthesia Reaction: No Hx Neurological Disorder: No Hx Respiratory Disorders: No Hx Cardiac Disorders: No Hx Psychiatric Problems: Yes (Depression) Hx Miscellaneous Medical Probl: No Hx Alcohol Use: No Hx Substance Use: No Hx Tobacco Use: Yes Smoking Status: Current every day smoker Physical Exam Vitals Vital Signs Date Time Temp Pulse Resp B/P Pulse Ox O2 Delivery O2 Flow Rate FiO2 01/06/17 17:24 98.2 80 20 135/56 99 Physical Exam GENERAL: The patient is well developed and appropriate for usual state of health , in no apparent distress. HEENT: Atraumatic. CHEST: Clear to auscultation bilaterally. There are no rales, wheezes or rhonchi. HEART: Regular rate and rhythm. No murmurs, clicks, rubs or gallops. ABDOMEN: Soft, nontender and nondistended. Good bowel sounds. No rebound or guarding. No gross peritonitis. No gross organomegaly or masses. No Duckworth sign or McBurney point tenderness. BACK: No midline or flank tenderness. NEURO: Alert and oriented. SKIN: The skin is warm and dry. Result Diagram: 01/06/17191601/06/171916 Results 24 hrs Laboratory Tests Test 01/06/17 19:00 01/06/17 19:17 Urine Color YELLOW Urine Clarity SLIGHTLY CLOUDY Urine pH 6.0 Urine Specific [place] 1.015 Urine Ketones NEGATIVEmg/dL Urine Nitrite NEGATIVEmg/dL Urine Bilirubin NEGATIVEmg/dL Urine Urobilinogen NEGATIVEmg/dL Urine Leukocyte Esterase 1+Reza/ul Urine Microscopic RBC > 182/HPF Urine Microscopic WBC 49/HPF Urine Squamous Epithelial Cells FEW/HPF Urine Mucus FEW/HPF Urine Hemoglobin 3+mg/dL Urine Glucose NEGATIVEmg/dL Urine Total Protein NEGATIVEmg/dl White Blood Count 10.010^3/ul Red Blood Count 4.1010^6/ul Hemoglobin 12.7g/dl Hematocrit 38.2% Mean Corpuscular Volume 93.2fl Mean Corpuscular Hemoglobin 31.0pg Mean Corpuscular Hemoglobin Concent 33.2g/dl Red Cell Distribution Width 12.8% Platelet Count 13080^3/UL Mean Platelet Volume 8.0fl Neutrophils % 70.0% Lymphocytes % 22.3% Monocytes % 6.0% Eosinophils % 1.0% Basophils % 0.3% Nucleated Red Blood Cells % 0.0/100WBC Neutrophils # 7.010^3/ul Lymphocytes # 2.210^3/ul Monocytes # 0.610^3/ul Eosinophils # 0.110^3/ul Basophils # 0.010^3/ul Nucleated Red Blood Cells # 0.010^3/ul Sodium Level 140mmol/L Potassium Level 5.0mmol/L Chloride Level 106mmol/L Carbon Dioxide Level 28mmol/L Anion Gap 11 Blood Urea Nitrogen 7mg/dl Creatinine 0.57mg/dl Glucose Level 81mg/dl Calcium Level 9.3mg/dl Total Bilirubin 0.1mg/dl Direct Bilirubin 0.00mg/dl Indirect Bilirubin 0.1mg/dl Aspartate Amino Transf (AST/SGOT) 20IU/L Alanine Aminotransferase (ALT/SGPT) 33IU/L Alkaline Phosphatase 81IU/L Total Protein 7.5g/dl Albumin 4.2g/dl Globulin 3.30g/dl Albumin/Globulin Ratio 1.27 [place] [id number] Radiology Main Line: [phone] DIAGNOSTIC IMAGING REPORT Patient: RONY CRUMP : 1975 Age: 41 Sex: F MR #: [id number] DOS: 01/06/17 0000 Ordering MD: PATRICK FLOR PA-C Location: [facility] Room/Bed: PROCEDURE: US Pelvis. CLINICAL INDICATION: Abnormal vaginal bleeding. TECHNIQUE: The pelvis was evaluated with transabdominal and transvaginal sonography in the axial and sagittal planes. COMPARISON: No prior study is available for comparison. FINDINGS: Uterus: 7.9 x 4.5 x 6.1 cm. Endometrium: 4.5 mm. Right ovary: 2.9 x 2.3 x 2.3 cm. Left ovary: 2.5 x 1.0 x 1.6 cm. Uterine masses: None. Ovarian masses: None. Color Doppler and pulsed Doppler sonography demonstrate normal flow to the ovaries. Other pelvic masses: None. Free fluid: None. IMPRESSION: 1. Normal pelvic ultrasound. RPTAT: QQ .Arturo Spears MD, MD Date Time Electronically viewed and signed by .Arturo Spears MD, MD on 01/06/2017 19:17 .R/ CC: PATRICK FLOR Procedures/MDM This is a 41-year-old female presents to the ER with pelvic pain and vaginal bleeding. At this time patient's ultrasound is normal suspicion for endometriosis, pelvic mass, ovarian torsion is low. Patient does have dysfunctional uterine bleeding, patient is 41 years old and I do not feel comfortable giving patient control as this would put her at higher risk for DVT. Have a urinary tract infection, she will be treated with Keflex. Patient is to follow-up with her PCP within 1-2 days or return to ER sooner if symptoms worsen. I also advised her to see an FIELD ASSESSOR for treatment of her dysfunctional uterine bleeding. My medical decision making shared with the patient she understands and agrees with plan. Departure Diagnosis: Primary Impression: Dysfunctional uterine bleeding Additional Impression: UTI (urinary tract infection) Condition: Stable Patient Instructions: Understanding Urinary Tract Infections (UTIs), Dysfunctional Uterine Bleeding Additional Instructions: Call your primary care doctor TOMORROW for an appointment during the next 1-2 days.See the doctor sooner or return here if your condition worsens before your appointment time. PATRICK FLOR Jan 06, 2017 20:27
== END 2017-01-06 20:20 | disposition home or self-care (01) ==
LOC: FTE 17:22
DX: N93.8 Other specified abnormal uterine and vaginal bleeding (principal); N39.0 Urinary tract infection, site not specified; F17.210 Nicotine dependence, cigarettes, uncomplicated; R10.2 Pelvic and perineal pain
CPT/HCPCS: 76830; 76856; 80053; 81001; 85025; Z7502

== ENCOUNTER 2017-02-10 18:38 | Emergency (ER) | payer OTHER ==
[~2017-02-10] VITALS: Ht 147.3 cm; Wt 51.0 kg
[~2017-02-10 18:38] MED LIST changes: +CEPH-443 PO
[2017-02-10 19:17] VITALS: Ht 147.3 cm; Wt 51.0 kg
--- NOTE | 2017-02-10 21:05 | ERD ---
ER Documentation Chief Complaint Chief Complaint LEFT-SIDED VELEZ X 3 DAYS, SENSITIVE TO SOUND, NO HX OF MIGRAINES HPI 41-year-old female presents here to emergency department with complaints of left -sided headache, having pain, 6/10 scale, and started 3 days ago, worse upon hearing loud sounds. Patient did not take any medications to help with symptoms. Patient denies any head injury. Patient denies any numbness or tingling. Patient denies any nausea or vomiting. ROS All systems reviewed and are negative except as per history of present illness. Medications Home Meds Active Scripts Cephalexin* (Keflex*) 500 Mg Capsule, 500 MG PO BID for 7 Days, CAP Prov:PATRICK FLOR 01/06/17 Famotidine* (Pepcid*) 20 Mg Tablet, 20 MG PO BID for 28 Days, #56 TAB Prov:BECKY HATHAWAY MD 11/21/16 Reported Medications Bupropion Hcl* (Bupropion XL*) 300 Mg Tab.sr.24h, 300 MG PO DAILY, TAB.SA 11/21/16 Allergies Allergies: Coded Allergies: No Known Allergy (Unverified , 02/10/17) PMhx/Soc History of Surgery: No Anesthesia Reaction: No Hx Neurological Disorder: No Hx Respiratory Disorders: No Hx Cardiac Disorders: No Hx Psychiatric Problems: Yes (Depression) Hx Miscellaneous Medical Probl: No Hx Alcohol Use: No Hx Substance Use: No Hx Tobacco Use: Yes Smoking Status: Current every day smoker FmHx Family History: coronary disease, diabetes, other Physical Exam Vitals Vital Signs Date Time Temp Pulse Resp B/P Pulse Ox O2 Delivery O2 Flow Rate FiO2 02/10/17 19:17 98.2 63 18 120/80 100 Physical Exam GENERAL: The patient is well developed and appropriate for usual state of health, in no apparent distress. CHEST: Clear to auscultation bilaterally. There are no rales, wheezes or rhonchi. HEART: Regular rate and rhythm. No murmurs, clicks, rubs or gallops. No S3 or S4. ABDOMEN: Soft, nontender and nondistended. Good bowel sounds. No rebound or guarding. No gross peritonitis. No gross organomegaly or masses. No Duckworth sign or McBurney point tenderness. BACK: No midline or flank tenderness. EXTREMITIES: Equal pulses bilaterally. There is no peripheral clubbing, cyanosis or edema. No focal swelling or erythema. Full range of motion. Grossly neurovascularly intact. NEURO: Alert and oriented. Cranial nerves 2-12 intact. Motor strength in all 4 extremities with 5/5 strength. Sensation grossly intact. Normal speech and gait. Negative Romberg sign. Negative pronator drift. SKIN: There is no apparent rash or petechia. The skin is warm and dry. HEMATOLOGIC AND LYMPHATIC: There is no evidence of excessive bruising or lymphedema. No gross cervical, axillary, or inguinal lymphadenopathy. Result Diagram: 02/10/17213302/10/172133 Results 24 hrs Laboratory Tests Test 02/10/17 21:34 White Blood Count 8.010^3/ul Red Blood Count 4.3610^6/ul Hemoglobin 13.3g/dl Hematocrit 40.5% Mean Corpuscular Volume 92.9fl Mean Corpuscular Hemoglobin 30.5pg Mean Corpuscular Hemoglobin Concent 32.8g/dl Red Cell Distribution Width 12.3% Platelet Count 50493^3/UL Mean Platelet Volume 9.0fl Neutrophils % 67.4% Lymphocytes % 25.4% Monocytes % 5.9% Eosinophils % 0.8% Basophils % 0.4% Nucleated Red Blood Cells % 0.0/100WBC Neutrophils # 5.410^3/ul Lymphocytes # 2.010^3/ul Monocytes # 0.510^3/ul Eosinophils # 0.110^3/ul Basophils # 0.010^3/ul Nucleated Red Blood Cells # 0.010^3/ul Sodium Level 147mmol/L Potassium Level 4.3mmol/L Chloride Level 107mmol/L Carbon Dioxide Level 30mmol/L Anion Gap 14 Blood Urea Nitrogen 11mg/dl Creatinine 0.61mg/dl Glucose Level 101mg/dl Calcium Level 9.4mg/dl Total Bilirubin 0.1mg/dl Direct Bilirubin 0.00mg/dl Indirect Bilirubin 0.1mg/dl Aspartate Amino Transf (AST/SGOT) 20IU/L Alanine Aminotransferase (ALT/SGPT) 24IU/L Alkaline Phosphatase 82IU/L Total Protein 7.8g/dl Albumin 4.5g/dl Globulin 3.30g/dl Albumin/Globulin Ratio 1.36 PROCEDURE: CT Brain without contrast. CLINICAL INDICATION: Headache TECHNIQUE: A CT of the brain was performed on a [employer] 64-slice CT scanner utilizing axial imaging from the skull base through the vertex without IV contrast. Multiplanar reformatted images were made. Images were reviewed on a PACS workstation. The CTDIvol is 40.3 mGy and the DLP is 782 mGycm. One or more of the following dose reduction techniques were utilized: 1.) Automated exposure control 2.) Adjustment of the mA +/- kV according to patient's size 3.) Use of iterative reconstruction technique. COMPARISON: None FINDINGS: There is no intracranial hemorrhage, mass effect, or midline shift. No extra- axial fluid collection is seen. The ventricles and sulci are normal in size and configuration. In the anterior left parietal lobe (series 4, image 24) there is focal hypodensity with loss of jimenez-white matter differentiation but without mass effect. The remainder of the brain parenchyma demonstrates normal CT density. The visualized paranasal sinuses and osseous structures are grossly unremarkable. IMPRESSION: 1. In the left anterior parietal lobe, there is a small focal cortical hypodensity without mass effect. This may represent a small old infarct or a prominent sulcus. Recommend further evaluation with MRI of the brain. 2. No evidence of acute intracranial pathology. Physician Car Date Time Electronically viewed and signed by Physician Car on 02/10/2017 21 :06 ML/ CC: TONI KAMARA NP I discussed this case with my attending physician,Dr Cid, recommended to do a stat MRI for further evaluation. This was done. See results below. PROCEDURE: MR Brain with and without contrast. CLINICAL INDICATION: Headache. TECHNIQUE: Multiplanar multisequence MRI of the brain was performed before and after the administration of 10 cc Magnevist. COMPARISON: There are no similar studies submitted for comparison. FINDINGS: The ventricles and sulci are within normal limits. There is no abnormal intracranial enhancement. There is no acute infarction. There is no intracranial hemorrhage or extra-axial fluid collection. There is no mass effect. There is no midline shift. The brainstem is within normal limits. The posterior fossa is unremarkable. The normal intracranial, intravascular flow voids are preserved. The visualized paranasal sinuses are well aerated. There is some metallic artifact in the region of the orbits which is of uncertain etiology. There is no destructive osseous lesion. IMPRESSION: Unremarkable MRI of the brain. RPTAT: HIKT .Jose Bullard MD, MD Date Time Electronically viewed and signed by .Jose Bullard MD, MD on 02/10/2017 22:57 .T/ CC: TONI KAMARA NP Procedures/MDM Medical Decision Making: Patient symptoms are consistent with migraine headache , possible tension headache. There is low suspicion for neurological emergencies at this time since patients neurologic exam is normal. Patient did not have any altered level consciousness, vomiting, changes in balance or memory and did not have any head injury. Patients MRI does not show any neurologic emergencies at this time. Rx: Sheyla, was advised to follow-up with primary care doctor, possible see neurologist specialist if pain continues to persist. Patient was advised to return to emergency department for any worsening symptoms Dispostion: Home. Stable Disclaimer: Inadvertent spelling and grammatical errors are likely due to EHR/ dictation software use and do not reflect on the overall quality of patient care. Also, please note that the electronic time recorded on this note does not necessarily reflect the actual time of the patient encounter. Departure Diagnosis: Primary Impression: Headache Headache type: unspecified Headache chronicity pattern: acute headache Intractability: not intractable Qualified Code: R51 - Acute nonintractable headache, unspecified headache type Condition: Stable Patient Instructions: Self-Care for Headaches Additional Instructions: Rx: Sheyla, was advised to follow-up with primary care doctor, possible see neurologist specialist if pain continues to persist. Patient was advised to return to emergency department for any worsening symptoms TONI KAMARA NP Feb 10, 2017 21:05
--- NOTE | 2017-02-10 21:06 | RADRPT ---
PROCEDURE: CT Brain without contrast. CLINICAL INDICATION: Headache TECHNIQUE: A CT of the brain was performed on a [employer] 64-slice CT scanner utilizing axial imaging from the skull base through the vertex without IV contrast. Multiplanar reformatted images were made. Images were reviewed on a PACS workstation. The CTDIvol is 40.3 mGy and the DLP is 782 mGycm. One or more of the following dose reduction techniques were utilized: 1.) Automated exposure control 2.) Adjustment of the mA +/- kV according to patient's size 3.) Use of iterative reconstruction technique. COMPARISON: None FINDINGS: There is no intracranial hemorrhage, mass effect, or midline shift. No extra-axial fluid collection is seen. The ventricles and sulci are normal in size and configuration. In the anterior left parietal lobe (series 4, image 24) there is focal hypodensity with loss of jimenez -white matter differentiation but without mass effect. The remainder of the brain parenchyma demonst rates normal CT density. The visualized paranasal sinuses and osseous structures are grossly unremarkable. IMPRESSION: 1. In the left anterior parietal lobe, there is a small focal cortical hypodensity without mass effe ct. This may represent a small old infarct or a prominent sulcus. Recommend further evaluation with MRI of the brain. 2. No evidence of acute intracranial pathology. Physician Car Date Time Electronically viewed and signed by Physician Car on 02/10/2017 21:06 ML/
[2017-02-10 22:07] LABS: BASOPHILS % 0.4 % (0.0-2.0); EOSINOPHILS # 0.1 10^3/ul (0.0-0.5); EOSINOPHILS % 0.8 % (0.0-7.0); HEMATOCRIT 40.5 % (37.0-47.0); HEMOGLOBIN 13.3 g/dl (12.0-16.0); LYMPHOCYTES % 25.4 % (15.0-51.0); MEAN CORPUSCULAR HEMOGLOBIN 30.5 pg (29.0-33.0); MEAN CORPUSCULAR HGB CONC 32.8 g/dl (32.0-37.0); MEAN CORPUSCULAR VOLUME 92.9 fl (82.0-101.0); MONOCYTE # 0.5 10^3/ul (0.3-0.9); MONOCYTES % 5.9 % (0.0-11.0); NEUTROPHIL # 5.4 10^3/ul (1.6-7.5); NEUTROPHILS % 67.4 % (39.0-77.0); PLATELET COUNT 216 10^3/UL (140-415); RED BLOOD COUNT 4.36 10^6/ul (4.20-5.40); RED CELL DISTRIBUTION WIDTH 12.3 % (11.5-14.5)
[2017-02-10 22:25] LABS: ALBUMIN 4.5 g/dl (3.3-4.9); ALBUMIN/GLOBULIN RATIO 1.36; BILIRUBIN,INDIRECT 0.1 mg/dl (0-1.1); BILIRUBIN,TOTAL 0.1 mg/dl (0.2-1.3); CALCIUM 9.4 mg/dl (8.4-10.2); CREATININE 0.61 mg/dl (0.44-1.00); POTASSIUM 4.3 mmol/L (3.5-5.1); TOTAL PROTEIN 7.8 g/dl (6.1-8.1)
--- NOTE | 2017-02-10 22:57 | RADRPT ---
PROCEDURE: MR Brain with and without contrast. CLINICAL INDICATION: Headache. TECHNIQUE: Multiplanar multisequence MRI of the brain was performed before and after the administrat ion of 10 cc Magnevist. COMPARISON: There are no similar studies submitted for comparison. FINDINGS: The ventricles and sulci are within normal limits. There is no abnormal intracranial enhancement. T here is no acute infarction. There is no intracranial hemorrhage or extra-axial fluid collection. Th ere is no mass effect. There is no midline shift. The brainstem is within normal limits. The broom stitcher ior fossa is unremarkable. The normal intracranial, intravascular flow voids are preserved. The visualized paranasal sinuses are well aerated. There is some metallic artifact in the region of the orbits which is of uncertain etiology. There is no destructive osseous lesion. IMPRESSION: Unremarkable MRI of the brain. RPTAT: HIKT .Jose Bullard MD, MD Date Time Electronically viewed and signed by .Jose Bullard MD, on 02/10/2017 22:57 .T/
[2017-02-10] MEDS ORDERED: FIORICET PO (23:29)
[2017-02-10 23:39] VITALS: BP 117/75; PULSE 72; RESP 18; TEMP 98.5
== END 2017-02-10 23:40 | disposition home or self-care (01) ==
LOC: FTE 18:38
DX: R51 Headache (principal); F17.210 Nicotine dependence, cigarettes, uncomplicated
CPT/HCPCS: 70450; 70553; 80053; 85025; Z7502

== ENCOUNTER 2017-06-12 13:38 | Emergency (ER) | END 2017-06-12 16:21 | disposition home or self-care (01) ==

== ENCOUNTER 2017-08-26 10:55 | Emergency (ER) | END 2017-08-26 12:05 | disposition home or self-care (01) ==

== ENCOUNTER 2017-12-28 17:45 | Emergency (ER) | END 2017-12-28 23:57 | disposition home or self-care (01) ==